=== PATIENT | male | born 1980 | race Two or more races ===

== ENCOUNTER 2018-07-05 14:38 | Emergency (ER) | payer SELFPAY ==
[~2018-07-05] VITALS: Ht 175.3 cm; Wt 83.9 kg
[2018-07-05 14:50] VITALS: BP 129/77
[2018-07-05] MEDS ORDERED: ACETAMINOPHEN 325 MG TAB PO ONE (16:30)
== END 2018-07-05 16:39 | disposition home or self-care (01) ==
LOC: ER 14:42
DX: H60.91 Unspecified otitis externa, right ear (principal); R51 Headache
CPT/HCPCS: 70450; 93005